=== PATIENT | female | born 1945 | race Caucasian/White ===

== ENCOUNTER 2016-10-26 18:06 | Emergency (ER) | payer OTHER ==
[2016-10-26 18:57] VITALS: BP 104/52
--- NOTE | 2016-10-26 19:01 | UC ---
Respiratory Complaint HPI - HPI Summary HPI Summary: The patient comes in today for: 1. Cough (dry), dyspnea: Onset: Last night. Palliative/Provocative: Proair HFA she used from her daughter helped. Walking makes it worse. Quality: "I've only coughed 4-5 times" Region: [place]. Severity: No chest pain, but chest soreness: 5/10 Time: Constant. Associated symptoms: Previous lung/heart disease: None Cough: minimal Fever: No temperature taken. CAD: HTN: (-). 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." * - History of Current Complaint Chief Complaint: UCRespiratory Stated Complaint: CONGESTION TIGHT COUGH Time Seen by Provider: 10/26/16 18:33 Hx Obtained From: Patient - Allergies/Home Medications Allergies/Adverse Reactions: Allergies Allergy/AdvReac Type Severity Reaction Status Date / Time shrimp Allergy See Comment Uncoded 10/26/16 18:38 Home Medications: Home Medications Acetaminophen TAB* [Tylenol TAB*] 975 mg PO Q6H PRN 10/26/16 [History Confirmed 10/26/16] Citalopram TAB* [CeleXA TAB*] 20 mg PO DAILY 10/26/16 [History Confirmed ] Coenzyme Q10 (Ubidecarenone) [Coenzyme Q-10] 100 mg PO DAILY 10/26/16 [History Confirmed 10/26/16] Cyanocobalamin INJ * [Vitamin B12 INJ *] 1,000 mcg IM SEE INSTRUCTIONS 10/26/16 [History Confirmed 10/26/16] Progesterone (Bulk) [Progesterone Concentrate] 40 applic TOPICAL SEE INSTRUCTIONS 10/26/16 [History Confirmed 10/26/16] Red Yeast Rice Extract [Red Yeast Rice] 300 mg PO DAILY 10/26/16 [History Confirmed 10/26/16] PMH/Surg Hx/FS Hx/Imm Hx Previously Healthy: Yes Endocrine History Of: Denies: Diabetes, Thyroid Disease, Hyperthyroidism, Hypothyroidism, Dyslipidemia Cardiovascular History Of: Denies: Cardiac Disorders, Hypertension, Pacemaker/ICD, Myocardial Infarction , Congestive Heart Failure, Atrial Fibrillation, Deep Vein Thrombosis, Bleeding Disorders Respiratory History Of: Denies: COPD, Asthma, Bronchitis, Pneumonia, Pulmonary Embolism GI/ History Of: Denies: Gastroesophageal Reflux, Ulcer, Gastrointestinal Bleed, Gall Bladder Disease, Kidney Stones, Diverticulitis, Renal Disease, Urosepsis Neurological History Of: Denies: TIA, CVA, Dementia, Seizures, Migraine Psychological History Of: Reports: Anxiety Denies: Depression, Bipolar Disorder, Schizophrenia, Post Traumatic Stress Disorder Cancer History Of: Denies: Lung Cancer, Colorectal Cancer, Breast Cancer, Prostate Cancer, Cervical Cancer Other History Of: Negative For: HIV, Hepatitis B, Hepatitis C, Anticoagulant Therapy - Surgical History Surgical History: Yes Surgery Procedure, Year, and Place: bilat knee replacement. gastric bypass. abd skin flap, tummy tuck. gall bladder. umbilical hernia x2. T&A. [facility] - Family History Known Family History: Positive: Unknown - She is adopted. - Social History Occupation: Unemployed, Retired Alcohol Use: Occasionally Substance Use Type: None Smoking Status (MU): Never Smoked Tobacco - Immunization History Most Recent Influenza Vaccination: 5589-8685 Most Recent Tetanus Shot: 2016 Most Recent Pneumonia Vaccination: both PCV13 and PPSV 23 Review of Systems Constitutional: Negative Skin: Negative Eyes: Negative ENT: Negative Respiratory: Negative Cardiovascular: Chest Pain - She describes a chest soreness, retrosternal, sides and the back. Gastrointestinal: Negative Genitourinary: Negative Motor: Negative All Other Systems Reviewed And Are Negative: Yes Physical Exam Triage Information Reviewed: Yes Appearance: Well-Appearing, No Pain Distress, Well-Nourished Vital Signs: Initial Vital Signs Temp 98.9 F 10/26/16 18:29 Pulse 95 10/26/16 18:29 Resp 14 10/26/16 18:29 BP 104/52 10/26/16 18:29 Pulse Ox 94 10/26/16 18:29 Vital Signs Reviewed: Yes Eyes: Positive: Conjunctiva Clear. Negative: Discharge ENT: Positive: Hearing grossly normal. Negative: Pharyngeal erythema, Nasal congestion, Nasal drainage, TM bulging, TM dull, TM red, Tonsillar swelling, Tonsillar exudate Dental: Negative: Gross Decay/Caries @, Dental Fracture @ Neck: Positive: Supple, Nontender, No Lymphadenopathy. Negative: Nuchal Rigidity Respiratory: Positive: Lungs clear, No respiratory distress, No accessory muscle use. Negative: Crackles, Stridor Cardiovascular: Positive: RRR. Negative: No Murmur - She has a 2-3/6 SEJM heard along the LSB. No gallop. Abdomen Description: Positive: Nontender, No Organomegaly, Soft. Negative: Distended, Guarding Musculoskeletal: Positive: Strength Intact, ROM Intact, No Edema Neurological: Positive: Alert, Muscle Tone Normal Psychological: Positive: Normal Response To Family, Age Appropriate Behavior, Consolable Skin: Negative: rashes, breakdown UC Diagnostic Evaluation - Laboratory O2 Sat by Pulse Oximetry: 94 Diagnostic Studies Comment: CXR: IMPRESSION: FINDINGS CONSISTENT WITH COPD, NO EVIDENCE FOR ACUTE FINDING. - Radiology Xray Interpretation: No Acute Changes Radiology Interpretation Completed By: Radiologist Respiratory Course/Dx - Course Course Of Treatment: The patient was told of the EKG and CXR findings. - Differential Dx/Diagnosis Provider Diagnoses: Ayptical chest pain. Discharge - Discharge Plan Condition: Stable Disposition: AGAINST MEDICAL ADVICE Additional Instructions: Patient is to go directly to [facility] ER for evaluation of chest soreness.
--- NOTE | 2016-10-26 20:03 | RAD ---
INDICATION: Dyspnea, chest pain. COMPARISON: Comparison is made with a prior chest x-ray study from October 03, 2005. TECHNIQUE: Dual-energy PA and lateral views of the chest were obtained. FINDINGS: The heart is within normal limits in size. Mediastinal and hilar contours appear within normal limits. The lungs are hyperinflated and clear with flattening of the diaphragms consistent with chronic obstructive pulmonary disease. No pleural effusion is seen. IMPRESSION: FINDINGS CONSISTENT WITH COPD, NO EVIDENCE FOR ACUTE FINDING.
== END 2016-10-26 20:42 | disposition left against medical advice (07) ==
LOC: UCCORT 18:06
DX: R07.89 Other chest pain (principal); Z96.653 Presence of artificial knee joint, bilateral; Z98.84 Bariatric surgery status; Z90.49 Acquired absence of other specified parts of digestive tract
CPT/HCPCS: 71020; 93005; 99212; G0463

== ENCOUNTER 2017-12-29 10:08 | Emergency (ER) | payer MEDICARE ==
[2017-12-29 10:44] VITALS: BP 132/51
--- NOTE | 2017-12-29 11:34 | RAD ---
INDICATION: Right foot injury COMPARISON: None TECHNIQUE: AP, lateral, and oblique views were obtained. FINDINGS: There are findings suspicious for nondisplaced fracture of the fourth metatarsal head. No other apparent acute bony findings are seen. There is degenerative change mid foot. There are heel spurs. There is a pes planus deformity. There is mild dependent edema. IMPRESSION: PROBABLE NONDISPLACED FOURTH METATARSAL HEAD FRACTURE. UNDERLYING OSTEOARTHRITIC CHANGES.
--- NOTE | 2017-12-29 11:57 | ED ---
Lower Extremity - HPI Summary HPI Summary: 72 yr old with complaint of left foot pain. Onset two days ago. She fell and injured her foot. She noticed a bruise over the 4th toe left foot. - History of Current Complaint Chief Complaint: UCLowerExtremity Stated Complaint: S/P FALL LEFT FOOT PAIN Time Seen by Provider: 12/29/17 11:04 Pain Intensity: 3 - Allergies/Home Medications Allergies/Adverse Reactions: Allergies Allergy/AdvReac Type Severity Reaction Status Date / Time shrimp Allergy See Comment Uncoded 10/26/16 18:38 Home Medications: Home Medications Ibuprofen 600 mg PO Q8H 12/29/17 [History Confirmed 12/29/17] PMH/Surg Hx/FS Hx/Imm Hx Endocrine/Hematology History: Denies: Hx Anticoagulant Therapy, Hx Diabetes, Hx Thyroid Disease Cardiovascular History: Denies: Hx Congestive Heart Failure, Hx Deep Vein Thrombosis, Hx Hypertension , Hx Myocardial Infarction, Hx Pacemaker/ICD Respiratory History: Denies: Hx Asthma, Hx Chronic Obstructive Pulmonary Disease (COPD), Hx Lung Cancer, Hx Pneumonia, Hx Pulmonary Embolism GI History: Denies: Hx Gall Bladder Disease, Hx Gastrointestinal Bleed, Hx Ulcer, Hx Urosepsis History: Denies: Hx Kidney Stones, Hx Renal Disease Neurological History: Denies: Hx Dementia, Hx Migraine, Hx Seizures, Hx Transient Ischemic Attacks (TIA) Psychiatric History: Reports: Hx Anxiety Denies: Hx Depression, Hx Schizophrenia, Hx Bipolar Disorder - Surgical History Surgery Procedure, Year, and Place: bilat knee replacement. gastric bypass. abd skin flap, tummy tuck,. gall bladder. umbilical hernia x3. T&A. [facility] Infectious Disease History: No Infectious Disease History: Denies: Traveled Outside the [place] in Last 30 Days - Family History Known Family History: Positive: Unknown - She is adopted. - Social History Alcohol Use: Rare Substance Use Type: Reports: None Smoking Status (MU): Never Smoked Tobacco Review of Systems Positive: Other - foot injury, bruise, swelling All Other Systems Reviewed And Are Negative: Yes Physical Exam Triage Information Reviewed: Yes Vital Signs On Initial Exam: Initial Vitals Temp Pulse Resp BP Pulse Ox 98.2 F 81 16 132/51 100 12/29/17 10:32 12/29/17 10:32 12/29/17 10:32 12/29/17 10:32 12/29/17 10:32 Vital Signs Reviewed: Yes Appearance: Positive: Well-Appearing, No Pain Distress Skin: Positive: Warm Head/Face: Positive: Normal Head/Face Inspection Eyes: Positive: EOMI ENT: Positive: TMs normal Neck: Positive: Nontender Respiratory/Lung Sounds: Positive: Other - normal respirtory effort. Cardiovascular: Positive: Pulses are Symmetrical in both Upper and Lower Extremities - Normal color, perfusion, temp, neuro vasc intact. She does have STS left foot. bruise present over the 4th distal metatarsal and proximal left 4th toe. Abdomen Description: Negative: Distended Musculoskeletal: Positive: Strength/ROM Intact Neurological: Positive: CN Intact II-III Psychiatric: Positive: Normal - Chinmay Coma Scale Best Eye Response: 4 - Spontaneous Best Motor Response: 6 - Obeys Commands Best Verbal Response: 5 - Oriented Coma Scale Total: 15 Diagnostics - Vital Signs Vital Signs Temp Pulse Resp BP Pulse Ox 12/29/17 10:32 98.2 F 81 16 132/51 100 - Laboratory Lab Statement: Any lab studies that have been ordered have been reviewed, and results considered in the medical decision making process. - Radiology left foot Xray Interpretation: Positive (See Comments) - STS and 4th metatarsal head fracture, non displaced. Radiology Interpretation Completed By: Radiologist Lower Extremity Course/Dx - Course Course Of Treatment: 72 yr old with fx of foot. Post op shoe and dc to home to follow up with Ortho. - Diagnoses Provider Diagnoses: Nondisplaced fracture of fourth metatarsal bone, left foot, initial encounter for closed fracture Discharge - Sign-Out/Discharge Documenting (check all that apply): Discharge/Admit/Transfer - Discharge Plan Condition: Good Disposition: HOME Patient Education Materials: Foot Fracture in Adults (ED) Referrals: Karla Silva MD [Primary Care Provider] - 2 Days Cisco Yin MD [Medical Doctor] - 2 Days - Billing Disposition and Condition Condition: GOOD Disposition: HOME
== END 2017-12-29 12:18 | disposition home or self-care (01) ==
LOC: UCCORT 10:08
DX: S92.342A Displaced fracture of fourth metatarsal bone, left foot, initial encounter for closed fracture (principal); W19.XXXA Unspecified fall, initial encounter; Y93.9 Activity, unspecified; Y92.9 Unspecified place or not applicable
CPT/HCPCS: 99211; G0463

== ENCOUNTER 2019-10-11 11:41 | Emergency (ER) | payer MEDICARE ==
[2019-10-11 12:10] VITALS: BP 120/51
--- NOTE | 2019-10-11 12:23 | UC ---
Respiratory Complaint HPI - HPI Summary HPI Summary: 74-year-old female who has had cold symptoms since yesterday. She states last evening she started experiencing symptoms but does not think she had a fever. She did get a flu shot. She is a nonsmoker. - History of Current Complaint Chief Complaint: UCRespiratory Stated Complaint: COUGH Time Seen by Provider: 10/11/19 11:57 Hx Obtained From: Patient ?: No Onset/Duration: Sudden Onset Timing: Constant Severity Initially: Mild Severity Currently: Mild Pain Intensity: 0 Character: Cough: Nonproductive Aggravating Factors: Nothing Alleviating Factors: Bronchodilator - Patient states she had some wheezing last evening so she used an albuterol inhaler however she states she's only had asthma as a child. Associated Signs And Symptoms: Positive: Wheezing, URI, Nasal Congestion - Allergies/Home Medications Allergies/Adverse Reactions: Allergies Allergy/AdvReac Type Severity Reaction Status Date / Time shrimp Allergy See Comment Uncoded 10/11/19 12:11 Home Medications: Home Medications Elderberry Cough Drop 1 dose PO QID PRN 10/11/19 [History Confirmed 10/11/19] Progestin Cream 1 applic TOPICAL BID 10/11/19 [History Confirmed 10/11/19] PMH/Surg Hx/FS Hx/Imm Hx Previously Healthy: Yes Psychological History: Anxiety Other History Of: Negative For: HIV, Hepatitis B, Hepatitis C, Anticoagulant Therapy - Surgical History Surgical History: Yes Surgery Procedure, Year, and Place: bilat knee replacement. gastric bypass. abd skin flap, tummy tuck,. gall bladder. umbilical hernia x3. T&A. [facility] - Family History Known Family History: Positive: Unknown - She is adopted. - Social History Alcohol Use: Occasionally Substance Use Type: None Smoking Status (MU): Never Smoked Tobacco - Immunization History Most Recent Influenza Vaccination: 5372-0161 Most Recent Tetanus Shot: 2016 Most Recent Pneumonia Vaccination: both PCV13 and PPSV 23 Review of Systems All Other Systems Reviewed And Are Negative: Yes ENT: Positive: Nasal Discharge Respiratory: Positive: Cough - Nonproductive cough, mild wheezing last evening Is Patient Immunocompromised?: No Physical Exam Triage Information Reviewed: Yes Appearance: Well-Appearing, No Pain Distress, Well-Nourished Vital Signs: Initial Vital Signs Temp 97.9 F 10/11/19 12:03 Pulse 70 02/17/20 12:03 Resp 20 10/11/19 12:03 BP 120/51 10/11/19 12:03 Pulse Ox 100 10/11/19 12:03 Vital Signs Reviewed: Yes Eyes: Positive: Conjunctiva Clear ENT: Positive: Pharynx normal, Nasal congestion, Nasal drainage - Clear nasal coryza, TMs normal, Uvula midline Neck: Positive: Supple, Nontender, No Lymphadenopathy Respiratory: Positive: No respiratory distress, No accessory muscle use, Rhonchi , Wheezing - Very mild rhonchi and mild wheezing with forced expiration. Cardiovascular: Positive: RRR, No Murmur, Pulses Normal, Brisk Capillary Refill Musculoskeletal Exam: Normal Neurological Exam: Normal Psychological Exam: Normal Skin Exam: Normal Respiratory Course/Dx - Course Course Of Treatment: Chest x-ray:FINDINGS: The heart is within normal limits in size. Mediastinal and hilar contours appear within normal limits. The lungs are hyperinflated and clear. No pleural effusion is seen. IMPRESSION: FINDINGS CONSISTENT WITH COPD, NO EVIDENCE FOR ACUTE DISEASE. Rapid influenza test: Positive DuoNeb treatment: Patient felt much better following the DuoNeb treatment and her lungs were completely clear. She had good air movement. She opted to be treated with Tamiflu and to continue her inhaler every 4-6 hours as needed at home. - Differential Dx/Diagnosis Provider Diagnosis: Influenza Discharge ED - Sign-Out/Discharge Documenting (check all that apply): Patient Departure All imaging exams completed and their final reports reviewed: Yes - Discharge Plan Condition: Fair Disposition: HOME Prescriptions: Oseltamivir CAP* [Tamiflu CAP*] 75 mg PO BID 5 Days #10 cap Patient Education Materials: Influenza (DC) Referrals: Karla Silva MD [Primary Care Provider] - Additional Instructions: Increase fluids, rest, may continue to use your albuterol inhaler 2 puffs every 4-6 hours as needed for tight cough or wheezing. Follow-up with your primary care provider in 3 or 4 days if no improvement. - Billing Disposition and Condition Condition: FAIR Disposition: Home
[2019-10-11] MEDS ORDERED: Albuterol/Ipratropium NEB.SOL* Albuterol 2.5 MG/Ipratropium 0.5 MG 3 ML INH ONE (12:29)
[2019-10-11 12:56] LABS: Influenza A Molecular POSITIVE (Negative)
== END 2019-10-11 13:25 | disposition home or self-care (01) ==
LOC: UCCORT 11:41
DX: J11.1 Influenza due to unidentified influenza virus with other respiratory manifestations (principal); Z91.013 Allergy to seafood
CPT/HCPCS: 71046; 99212; A9270-GY; G0463